=== PATIENT | female | born 1995 | race Caucasian/White ===

== ENCOUNTER 2019-03-25 11:12 | Inpatient (IN) | payer OTHER ==
[2019-03-26] MEDS ORDERED: CARBOPROST TROMETHAMINE 250 MCG/ML 1 ML AMP IM PRN (05:56)
[2019-03-26] MEDS ORDERED: LIDOCAINE 0.5% (PF) 5 MG/ML (50 ML SDV) SQ PRN (05:56)
[2019-03-26] MEDS ORDERED: METHYLERGONOVINE 0.2 MG/ML 1 ML AMP IM PRN (05:56)
[2019-03-26] MEDS ORDERED: TERBUTALINE 1 MG/ML VIAL SQ PRN (05:56)
[2019-03-26] MEDS ORDERED: OXYTOCIN 10 UNIT/ML 1 ML VIAL IM PRN (05:56)
[2019-03-26 06:23] VITALS: BMI 29.0
[2019-03-26] MEDS: LACTATED RINGERS 1,000 ML IV SCH ×2 (06:26→12:52)
[2019-03-26 06:27] LABS: Basophils % (A) 0 %; Eosinophils # (A) 0.2 k/uL (0-0.7); Eosinophils % (A) 1 %; HCT 37.4 % (34.0-46.0); HGB 12.5 gm/dL (11.4-16.0); Lymphocytes # (A) 2.4 k/uL (1.0-4.8); Lymphocytes % (A) 19 %; MCH 28.9 pg (25.0-35.0); MCHC 33.3 g/dL (31.0-37.0); MCV 86.7 fL (80.0-100.0); Mean Platelet Volume 9.1; Monocytes # (A) 0.7 k/uL (0-1.0); Monocytes % (A) 5 %; Neutrophils # (A) 9.3 k/uL (1.3-7.7); Neutrophils % (A) 73 %; Platelet Count 214 k/uL (150-450); RBC 4.31 m/uL (3.80-5.40); RDW 14.4 % (11.5-15.5); WBC 12.7 k/uL (3.8-10.6)
[2019-03-26] MEDS: OXYTOCIN 30 UNITS/500 ML NS 30 UNIT in SALINE 1 500ML.BAG IV SCH (06:27)
[2019-03-26] MEDS ORDERED: BUTORPHANOL 1 MG/ML 1 ML VIAL IV PRN (08:20)
[2019-03-26] MEDS ORDERED: ROPIVACAINE 5MG/ML 20ML VIAL ONE (12:33)
[2019-03-26] MEDS ORDERED: SODIUM CHLORIDE 0.9% 100 ML BAG ONE (12:33)
[2019-03-26] MEDS ORDERED: fentaNYL (PF) 50 MCG/ML 5 ML AMP ONE (12:33)
[2019-03-26] MEDS ORDERED: HYDROCORTISONE 2.5% RECTAL CREAM 30 GM TUBE RECTAL PRN (19:35)
[2019-03-26] MEDS ORDERED: SIMETHICONE 80 MG CHEWABLE PO PRN (19:35)
[2019-03-26] MEDS ORDERED: ACETAMINOPHEN TAB 325 MG TAB PO PRN (19:35)
[2019-03-26] MEDS ORDERED: BENZOCAINE/MENTHOL SPRAY 1 GM/SPRAY AEROSOL TOPICAL PRN (19:35)
[2019-03-26] MEDS ORDERED: diphenhydrAMINE 50 MG/ML 1 ML VIAL IVP PRN ×2 (19:35)
[2019-03-26] MEDS ORDERED: LANOLIN CREAM 5 GM TUBE TOPICAL PRN (19:35)
[2019-03-26] MEDS ORDERED: ZOLPIDEM 5 MG TAB PO PRN (19:35)
[2019-03-26] MEDS ORDERED: diphenhydrAMINE 50 MG CAP PO PRN (19:35)
[2019-03-26] MEDS ORDERED: WITCH HAZEL 1 EACH MED..PAD TOPICAL PRN (19:35)
[2019-03-26] MEDS ORDERED: HYDROcodone/APAP 5-325MG 1 EACH TAB PO PRN (19:35)
[2019-03-26] MEDS ORDERED: diphenhydrAMINE 25 MG CAP PO PRN (19:35)
--- NOTE | 2019-03-26 19:44 | P.PROBDLV ---
Vaginal Delivery Note - . Vaginal Delivery Note: This is a pleasant 23-year-old 1 para 0 at 40 and 1/sevenths weeks that presented to labor and delivery this morning for induction of labor. Patient was admitted and Pitocin induction of labor was begun. Amniotomy was performed. Patient progressed through labor eventually becoming uncomfortable and requesting epidural placement. Anesthesia did place this epidural without difficulty. Patient progressed through labor becoming complete was placed in the modified Nettie position and began pushing. Patient had a normal spontaneous vaginal delivery of a viable female infant at 1907, weight of 7 lbs. 11 oz. with Apgars of 9 and 9 at one and 5 minutes respectively. After a two- minute delayed the umbilical cord was doubly clamped and cut and the placenta was delivered spontaneously intact with a three-vessel cord. On inspection the patient's vaginal vault a first-degree vaginal laceration was noted. This was repaired in the usual fashion with 3-0 Rapide. The uterus is noted to be firm at this time after 1 dose of Methergine. The bladder was emptied for approximately 50 mL of clear yellow urine. Estimated blood loss, 300 mL Patient and tolerated delivery well and are resting comfortably.
[2019-03-26] MEDS: OXYTOCIN 20 UNITS/1000 ML NS 1,000 ML IV SCH ×2 (19:45→19:50)
[2019-03-26] MEDS: SENNOSIDES-DOCUSATE SODIUM 1 EACH TAB PO SCH (19:45)
[2019-03-26] MEDS: IBUPROFEN 600 MG TAB PO PRN (19:45)
[2019-03-26] MEDS ORDERED: MISOPROSTOL 200 MCG TAB RECTAL STA ×2 (19:55→20:09)
[2019-03-27] MEDS: IBUPROFEN 600 MG TAB PO PRN ×2 (05:11→16:40)
[2019-03-27 06:58] LABS: Basophils % (A) 0 %; Eosinophils # (A) 0.1 k/uL (0-0.7); Eosinophils % (A) 0 %; HCT 31.8 % (34.0-46.0); HGB 10.6 gm/dL (11.4-16.0); Lymphocytes % (A) 14 %; MCH 29.6 pg (25.0-35.0); MCHC 33.4 g/dL (31.0-37.0); MCV 88.6 fL (80.0-100.0); Mean Platelet Volume 9.5; Monocytes # (A) 0.8 k/uL (0-1.0); Monocytes % (A) 5 %; Neutrophils # (A) 11.6 k/uL (1.3-7.7); Neutrophils % (A) 79 %; Platelet Count 196 k/uL (150-450); RBC 3.59 m/uL (3.80-5.40); RDW 13.9 % (11.5-15.5); WBC 14.6 k/uL (3.8-10.6)
--- NOTE | 2019-03-27 08:46 | P.PNOBGVD ---
Subjective - Subjective Principal diagnosis: PPD 1 Interval history: Patient is doing well . She is ambulating and voiding without difficulty. She is tolerating a regular diet without nausea or vomiting. She does state she is having some rectal pain since delivery. Her lochia is moderate at this time. She is bottle feeding. Patient reports: Reports appetite normal, Reports voiding normally, Reports pain well controlled, Reports ambulating normally : doing well, bottle feeding Objective - Latest Vital Signs Latest vital signs: Vital Signs Temp Pulse Resp BP 03/27/19 04:00 98.6 F 85 16 125/75 03/27/19 00:00 98.3 F 83 16 108/59 03/26/19 21:15 98 F 94 16 118/72 03/26/19 21:00 92 16 122/75 03/26/19 20:45 88 16 119/68 03/26/19 20:15 85 18 126/72 03/26/19 20:00 95 18 128/71 03/26/19 19:45 98.9 F 105 H 18 120/67 03/26/19 19:30 98.9 F 112 H 20 129/73 03/26/19 19:15 88 16 129/80 Intake and Output 03/26/19 03/27/19 03/27/19 22:59 06:59 14:59 Intake Total 10.417 Balance 10.417 Intake: Intake, IV Titration 10.417 Amount Oxytocin 20 Units/1000 ml 10.417 Ns 1,000 ml @ Per Protocol IV .Q0M [facility] Rx#: [id number] Other: # Voids 1 - Exam Extremities: Present: normal Abdomen: Present: normal appearance, soft Uterus: Present: normal, firm - Labs Labs: Abnormal Lab Results - Last 24 Hours (Table) 03/27/19 Range/Units 06:30 WBC 14.6 H (3.8-10.6) k/uL RBC 3.59 L (3.80-5.40) m/uL Hgb 10.6 L (11.4-16.0) gm/dL Hct 31.8 L (34.0-46.0) % Neutrophils # 11.6 H (1.3-7.7) k/uL Assessment and Plan (1) Term Current Visit: Yes Status: Acute Code(s): Z34.90 - ENCNTR FOR SUPRVSN OF NORMAL , UNSP, UNSP TRIMESTER SNOMED Code(s): 96010745 (2) Post-dates Current Visit: Yes Status: Acute Code(s): O48.0 - POST-TERM SNOMED Code(s): 22008623 (3) Status post vaginal delivery Current Visit: Yes Status: Acute Code(s): AJZ9327 - SNOMED Code(s): 610799856 Plan: Patient is doing well , we'll continue routine care and anticipate discharge home tomorrow morning.
--- NOTE | 2019-03-27 08:46 | P.HPOB ---
History of Present Illness H&P Date: 03/26/19 Chief Complaint: IUP 40 1/7 weeks This is a pleasant 23-year-old 1 para 0 at 40 1/7 weeks presented to labor and delivery secondary to postdates. Patient has been receiving routine care with myself and has been essentially uncomplicated. Patient is noting good movement this morning she denies contractions loss of fluid or vaginal bleeding. Review of Systems Constitutional: Denies chills, Denies fever Ears, nose, mouth and throat: Denies headache Cardiovascular: Reports leg edema Respiratory: Denies cough, Denies dyspnea Gastrointestinal: Denies constipation, Denies diarrhea, Denies nausea, Denies vomiting Genitourinary: Reports Past Medical History Past Medical History: No Reported History History of Any Multi-Drug Resistant Organisms: None Reported Past Surgical History: Adenoidectomy, Tonsillectomy Additional Past Surgical History / Comment(s): [place] teeth Past Anesthesia/Blood Transfusion Reactions: No Reported Reaction Past Psychological History: Anxiety, Depression Smoking Status: Never smoker Past Alcohol Use History: None Reported Past Drug Use History: None Reported - Past Family History Mother Family Medical History: Cancer Additional Family Medical History / Comment(s): Breast cancer Medications and Allergies Home Medications Medication Instructions Recorded Confirmed Type Pnv No.95/Ferrous Fum/Folic AC 1 each PO DAILY 03/26/19 03/26/19 History [ Multivitamin Tablet] Allergies Allergy/AdvReac Type Severity Reaction Status Date / Time No Known Allergies Allergy Verified 03/26/19 05:56 Exam Osteopathic Statement: *. No significant issues noted on an osteopathic structural exam other than those noted in the History and Physical/Consult. Vital Signs Temp Pulse Resp BP Pulse Ox 03/26/19 06:12 97.5 F L 95 16 120/67 99 Intake and Output 03/25/19 03/26/19 03/26/19 22:59 06:59 14:59 Other: # Voids 1 Weight 74.389 kg Targeted physical exam is performed and the state in general this is a well- nourished well-developed female in no acute distress. Her breathing is noted to be nonlabored and her heart has a regular rate and rhythm her abdomen is gravid and appropriate for gestational age. heart tones are noted to be category 1, on cervical exam she is 1-2/70/-2. Amniotomy is performed and clear fluid was obtained. Results Result Diagrams: 03/26/19 06:05 Abnormal Lab Results - Last 24 Hours (Table) 03/26/19 Range/Units 06:05 WBC 12.7 H (3.8-10.6) k/uL Neutrophils # 9.3 H (1.3-7.7) k/uL Assessment and Plan (1) Term Current Visit: Yes Status: Acute Code(s): Z34.90 - ENCNTR FOR SUPRVSN OF NORMAL , UNSP, UNSP TRIMESTER SNOMED Code(s): 42922112 (2) Post-dates Current Visit: Yes Status: Acute Code(s): O48.0 - POST-TERM SNOMED Code(s): 46919841 Plan: Patient is admitted to labor and delivery for Pitocin induction of labor. Patient is counseled on epidural should she desire or Stadol IV. Patient will consider both. Anticipate spontaneous vaginal delivery later this evening.
[2019-03-27] MEDS: SENNOSIDES-DOCUSATE SODIUM 1 EACH TAB PO SCH ×2 (09:18→21:14)
[2019-03-27] MEDS: PRENATAL VIT-IRON-FOLIC ACID 1 EACH CAP PO SCH (11:43)
[2019-03-27] MEDS ORDERED: MEASLES-MUMPS-RUBELLA VACC/PF 12,500 UNIT/0.5 ML VIAL SQ ONE (17:29)
[2019-03-27] MEDS: LACTATED RINGERS 1,000 ML IV SCH ×3 (22:05→22:08)
[2019-03-27] MEDS: OXYTOCIN 30 UNITS/500 ML NS 30 UNIT in SALINE 1 500ML.BAG IV SCH (22:06)
[2019-03-28] MEDS: IBUPROFEN 600 MG TAB PO PRN (08:13)
[2019-03-28] MEDS: SENNOSIDES-DOCUSATE SODIUM 1 EACH TAB PO SCH (08:14)
[2019-03-28 08:17] VITALS: BP 120/70; PULSE 98; RESP 16; TEMP 98.3
[2019-03-28] MEDS: PRENATAL VIT-IRON-FOLIC ACID 1 EACH CAP PO SCH (08:58)
--- NOTE | 2019-03-28 10:11 | P.DS ---
Providers Date of admission: 03/26/19 05:53 Expected date of discharge: 03/28/19 Attending physician: Lucia Gee Primary care physician: Stated None - Discharge Diagnosis(es) (1) Term Current Visit: Yes Status: Acute (2) Post-dates Current Visit: Yes Status: Acute (3) Status post vaginal delivery Current Visit: Yes Status: Acute Hospital Course: This is a pleasant 23-year-old 1 para 0 at 40 1/7 weeks that presented to labor and delivery for induction of labor. Patient was admitted and Pitocin induction of labor was begun. Once regular contractions were noted amniotomy was performed and clear fluid was obtained. Patient became uncomfortable and epidural was placed by the anesthesia department. Patient progressed to complete began pushing and had a normal spontaneous vaginal delivery of a viable female at 1907, weight of 7 lbs. 11 oz. and Apgars of 9 and 9 at one and 5 minutes respectively. Patient did sustain a first-degree vaginal laceration and this was repaired in the usual fashion with 3-0 Rapide. Patient did note uterine atony and 1 dose of Methergine was given. Patient's lochia has been moderate sense. Patient's course has been uneventful. On this day #2 she is ambulating and voiding without difficulty. She is tolerating a regular diet without nausea or vomiting. Her pain is controlled with oral ibuprofen. She does wish discharge home today. Patient Condition at Discharge: Good Plan - Discharge Summary New Discharge Prescriptions: No Action Pnv No.95/Ferrous Fum/Folic AC [ Multivitamin Tablet] 1 each PO DAILY Discharge Medication List Pnv No.95/Ferrous Fum/Folic AC [ Multivitamin Tablet] 1 each PO DAILY 03/26/19 [History] Follow up Appointment(s)/Referral(s): Lucia Gee DO [Doctor of Osteopathic Medicine] - 4 Weeks Patient Instructions/Handouts: Vaginal Delivery (DC), Vaginal Delivery (GEN) Discharge Disposition: HOME SELF-CARE
== END 2019-03-28 15:05 | disposition home or self-care (01) | DRG 807 ==
LOC: 4FBP 03-26 05:53
PROVIDERS: ADMIT Obstetrics & Gynecology Obstetrics; ATTEND Obstetrics & Gynecology Obstetrics
PROC: 10E0XZZ Delivery of Products of Conception, External Approach (ICD-10-PCS; principal; 2019-03-26)
PROC: 0HQ9XZZ Repair Perineum Skin, External Approach (ICD-10-PCS; 2019-03-26)
PROC: 00HU33Z Insertion of Infusion Device into Spinal Canal, Percutaneous Approach (ICD-10-PCS; 2019-03-26)
PROC: 3E0R3BZ Introduction of Anesthetic Agent into Spinal Canal, Percutaneous Approach (ICD-10-PCS; 2019-03-26)
PROC: 10907ZC Drainage of Amniotic Fluid, Therapeutic from Products of Conception, Via Natural or Artificial Opening (ICD-10-PCS; 2019-03-26)
PROC: 3E033VJ Introduction of Other Hormone into Peripheral Vein, Percutaneous Approach (ICD-10-PCS; 2019-03-26)
DX: O48.0 Post-term pregnancy (principal); Z37.0 Single live birth; O99.344 Other mental disorders complicating childbirth; F32.9 Major depressive disorder, single episode, unspecified; F41.9 Anxiety disorder, unspecified; O62.2 Other uterine inertia; O70.0 First degree perineal laceration during delivery; Z3A.40 40 weeks gestation of pregnancy; Z80.3 Family history of malignant neoplasm of breast
CPT/HCPCS: 85025; 86850; 86900; 86901; 90707